=== PATIENT | female | born 1980 | race Caucasian/White ===

== ENCOUNTER 2022-09-10 12:04 | Emergency (ER) | payer OTHER, SELFPAY ==
--- NOTE | ~2022-09-10 | XR_ITS ---
EXAMINATION: XR knee LT min 4V, XR knee RT min 4V DATE: 09/10/2022 12:47 INDICATION: Nontraumatic bilateral knee pain TECHNIQUE: 1. Weight bearing anteroposterior and [place], sunrise, and flexed lateral views of the right knee were obtained. 2. Weight bearing anteroposterior and [place], sunrise, and flexed lateral views of the left knee w ere obtained. COMPARISON: None. FINDINGS: Alignment is normal at both knees. In the flexed knee position there is mild joint space narrowing at the medial compartment of the right knee, minimal on the left. Small marginal osteophytes in the lat eral compartment of the left knee. No erosions. Possible small bilateral knee joint effusions. Soft t issues are otherwise unremarkable. IMPRESSION: 1. Mild osteoarthritis at the medial compartment of the right knee and medial and lateral compartment s of the left knee. 2. Possible small bilateral knee joint effusions Reviewed, dictated and finalized at location A. IMPRESSION: 1. Mild osteoarthritis at the medial compartment of the right knee and medial a nd lateral compartments of the left knee. 2. Possible small bilateral knee joint effusions
[2022-09-10 12:19] VITALS: BP 167/68; PULSE 90; RESP 16; TEMP 36.7; O2SAT 97
--- NOTE | 2022-09-10 12:24 | ED.EXTPRO ---
HPI - Extremity Problem General Chief complaint: Extremity Problem,Nontraumatic Stated complaint: knee pain Time Seen by Provider: 09/10/22 12:23 Source: patient and family Mode of arrival: ambulatory Limitations: no limitations History of Present Illness HPI Narrative: 41 years old white female presents with bilateral knee pain for a while that got worse over the last few days. She denies any fever, chills, nausea, vomiting, swelling, rash or recent trauma. Patient does not have a family physician. Last time was seen by a physician years ago. Related Data Allergies Allergy/AdvReac Type Severity Reaction Status Date / Time Sulfa (Sulfonamide Allergy Hives Verified 09/10/22 13:39 Antibiotics) Review of Systems Review of Systems: All systems reviewed & are unremarkable except as noted in HPI and below Exam Narrative: General appearance: Well-developed, well-nourished, obese Skin: Normal color Head: Normocephalic, nontraumatic Eyes: Clear conjunctiva Chest and respiratory: Airway patent, no respiratory distress, no accessory muscle use Heart: Regular rate/rhythm Abdomen: Soft, nontender, no organomegaly, quiet bowel sounds Vascular: Normal peripheral pulses, normal capillary refill. Musculoskeletal: Slight diffuse tenderness medially and laterally, no swelling, no rash, no limitation of movement. Crunchy sounds with flexion and extension Neurologic: Alert and oriented ?3, [employer] is normal as tested, no gross motor deficit Course Reevaluation(s) Reevaluation #1: Feeling a little better after ibuprofen and [place]. Date: 09/10/22 Time: 12:52 Vital Signs Vital signs: Vital Signs Temperature 36.7 C 09/10/22 12:19 Pulse Rate 90 09/10/22 12:19 Respiratory Rate 16 09/10/22 12:19 Blood Pressure 167/68 H 09/10/22 12:19 Pulse Oximetry 97 09/10/22 12:19 Oxygen Delivery Room Air 09/10/22 12:19 Temperature 36.7 C 09/10/22 12:19 Pulse Rate 90 09/10/22 12:19 Respiratory Rate 16 09/10/22 12:19 Blood Pressure 167/68 H 09/10/22 12:19 Pulse Oximetry 97 09/10/22 12:19 Oxygen Delivery Room Air 09/10/22 12:19 MDM - Extremity (Nontraumatic) Imaging Data Radiologist's impression: Impressions Knee X-Ray 09/10/22 13:27 IMPRESSION: 1. Mild osteoarthritis at the medial compartment of the right knee and medial and lateral compartments of the left knee. 2. Possible small bilateral knee joint effusions Knee X-Ray 09/10/22 13:27 IMPRESSION: 1. Mild osteoarthritis at the medial compartment of the right knee and medial and lateral compartments of the left knee. 2. Possible small bilateral knee joint effusions Critical Care Time Critical Care Time Critical Care Time: Yes Total Critical Care Time: 10 Discharge Plan Discharge Clinical Impression: Bilateral knee pain Qualifiers: Chronicity: unspecified Qualified Code(s): M25.561 - Pain in right knee Patient Disposition: Home, Self-Care Condition: Stable Instructions: Knee Pain (ED), Arthralgia (ED) Additional Instructions: Call Dr. Colon for appointment Prescriptions: New diclofenac sodium 75 mg tablet,delayed release (DR/EC) 75 mg PO BID PRN (Reason: pain) Qty: 20 0RF Follow-up/Referrals: Henok Colon MD [Physician] - 09/14/22 PHYSICIAN NOT ON STAFF,NONSTAFF [Primary Care Provider] -
[2022-09-10] MEDS: IBUPROFEN 400 MG TABLET 800 MG PO (13:10)
[2022-09-10] MEDS: HYDROcodone/acetaminophen (*CRX) 5-325 MG TABLET 1 TAB PO (13:11)
== END 2022-09-10 13:58 | disposition home or self-care (01) ==
LOC: ANHED 13:54
PROVIDERS: Emergency Provider Emergency Medicine
DX: M25.562 Pain in left knee (principal); M25.561 Pain in right knee; M17.0 Bilateral primary osteoarthritis of knee
CPT/HCPCS: 73564; 99284; A9270